=== PATIENT | male | born 2000 | race Hispanic/Latino ===

== ENCOUNTER 2018-04-09 22:39 | Emergency (ER) | payer OTHER ==
[2018-04-09] MEDS: PENICILLIN V POTASSIUM 500 MG TAB PO (23:13)
[2018-04-09] MEDS: IBUPROFEN 600 MG TAB PO (23:14)
== END 2018-04-09 23:29 | disposition home or self-care (01) ==
LOC: M ED 22:39
DX: J02.0 Streptococcal pharyngitis (principal)
CPT/HCPCS: 87880

== ENCOUNTER 2018-05-20 17:17 | Emergency (ER) | payer OTHER ==
[2018-05-20 17:46] LABS: KETONE, URINE AUTO RFX NEGATIVE (NEGATIVE); NITRITE, URINE AUTO RFX NEGATIVE (NEGATIVE); RBC, URINE AUTO RFX 4 /HPF (0-3); SQUAM EPITHELIAL CELL UR AURFX 0 /HPF (0-6)
[2018-05-20 18:12] LABS: LEUKOCYTE ESTERASE UR AUTO RFX TRACE (NEGATIVE); WBC, URINE AUTO RFX 12 /HPF (0-3)
[2018-05-20 19:38] LABS: CHLAMYDIA DNA AMPLIFICATION POSITIVE (NEGATIVE); GC DNA AMPLIFICATION NEGATIVE (NEGATIVE)
== END 2018-05-20 18:00 | disposition home or self-care (01) ==
LOC: M ED 17:17
DX: B35.9 Dermatophytosis, unspecified (principal); Z72.0 Tobacco use
CPT/HCPCS: 81001

== ENCOUNTER 2018-09-04 18:51 | Emergency (ER) | payer OTHER ==
[~2018-09-04] VITALS: Ht 180.3 cm; Wt 75.0 kg
[~2018-09-04 18:51] MED LIST: ANUS2.5C2 TOP; CLOT1CRE27 TOP; IBUP-1022 PO; PENI500T PO
[2018-09-04 19:50] LABS: BILIRUBIN, URINE MANUAL NEGATIVE (NEGATIVE); GLUCOSE, URINE (UA) MANUAL NEGATIVE (NEGATIVE); KETONE, URINE MANUAL NEGATIVE (NEGATIVE); UROBILINOGEN, URINE MANUAL NORMAL (NORMAL)
[2018-09-04] MEDS ORDERED: CLOT1CRE2 TOP (20:11)
[2018-09-04 20:19] VITALS: BP 131/71
[2018-09-04 21:19] LABS: CHLAMYDIA DNA AMPLIFICATION POSITIVE (NEGATIVE); GC DNA AMPLIFICATION NEGATIVE (NEGATIVE)
== END 2018-09-04 20:19 | disposition home or self-care (01) ==
LOC: M ED 18:51
DX: B35.9 Dermatophytosis, unspecified (principal); A74.9 Chlamydial infection, unspecified; Z86.19 Personal history of other infectious and parasitic diseases

== ENCOUNTER 2019-02-10 21:26 | Emergency (ER) | payer OTHER ==
[~2019-02-10] VITALS: Ht 180.3 cm; Wt 75.0 kg
[~2019-02-10 21:26] MED LIST changes: +CLOT1CRE2 TOP
[2019-02-10] MEDS ORDERED: CLOT1CRE2 TOP (22:47)
[2019-02-10 22:54] VITALS: BP 115/55
== END 2019-02-10 22:55 | disposition home or self-care (01) ==
LOC: M ED 21:26
DX: Z76.0 Encounter for issue of repeat prescription (principal); R23.8 Other skin changes

== ENCOUNTER 2019-04-08 11:33 | Emergency (ER) | payer OTHER ==
[~2019-04-08] VITALS: Ht 177.8 cm; Wt 75.2 kg
[2019-04-08 11:34] VITALS: BP 131/70
[2019-04-08 13:52] LABS: CHLAMYDIA DNA AMPLIFICATION NEGATIVE (NEGATIVE); GC DNA AMPLIFICATION NEGATIVE (NEGATIVE)
== END 2019-04-08 12:39 | disposition home or self-care (01) ==
LOC: M ED 11:33
DX: N48.1 Balanitis (principal); F17.210 Nicotine dependence, cigarettes, uncomplicated

== ENCOUNTER 2020-03-17 15:35 | Emergency (ER) | payer OTHER ==
[~2020-03-17] VITALS: Ht 177.8 cm; Wt 89.2 kg
[~2020-03-17 15:35] MED LIST changes: -CLOT1CRE2 TOP; +CLOT1CRE56 TOP
[2020-03-17 18:05] LABS: HEPATITIS B SURFACE ANTIBODY POSITIVE (POSITIVE); HEPATITIS B SURFACE ANTIGEN NEGATIVE (NEGATIVE); HEPATITIS C VIRUS ABY INDEX 0.1 INDEX (<0.8); HIV 1&2 SCREEN CENTAUR NEGATIVE (NEGATIVE)
--- NOTE | 2020-03-17 18:32 | REPVR ---
PROCEDURE INFORMATION: Exam: US Scrotum Exam date and time: 03/17/2020 6:04 PM Age: 19 years old Clinical indication: Scrotum pain and other: Penile pain; Additional info: Scrotal pain/ penile pain TECHNIQUE: Imaging protocol: Real-time ultrasound of the scrotum and contents with color Doppler and image documentation. COMPARISON: No relevant prior studies available. FINDINGS: Right testicle: The right testicle is normal in size and echogenicity, measuring 4.7 x 2.3 x 2.9 cm, with volume of 16.4 cc. No intratesticular mass. Color flow is observed to the right testicle. Left testicle: The left testicle is normal in size and echogenicity, measuring 4.7 x 2.3 x 2.8 cm, with volume of 15.8 cc. No intratesticular mass. Color flow is observed to the left testicle. Epididymides: There are 2 anechoic epididymal head cysts on the left each measuring 2 mm. The left epididymal head measures 13 mm. The right epididymal head is unremarkable, measuring 13 mm. Scrotum: Normal. IMPRESSION: 1. Two 2 mm left epididymal head cysts. 2. Normal testicles bilaterally. Electronically signed by: Zeina Gusman On 03/17/2020 18:31:47 PM
[2020-03-17] MEDS ORDERED: cefTRIAXone SOD 250MG VIAL (J0696 PER 250MG) IM ONE (19:00)
[2020-03-17] MEDS ORDERED: LIDOCAINE 1% SDV 5ML VIAL DILUENT ONE (19:00)
[2020-03-17] MEDS ORDERED: AZITHROMYCIN 250MG TABLET PO ONE (19:00)
[2020-03-17 19:27] VITALS: BP 132/71
[2020-03-17 20:03] LABS: CHLAMYDIA DNA AMPLIFICATION NEGATIVE (NEGATIVE); GC DNA AMPLIFICATION NEGATIVE (NEGATIVE)
== END 2020-03-17 19:28 | disposition home or self-care (01) ==
LOC: M ED 15:35
DX: N50.3 Cyst of epididymis (principal); R30.0 Dysuria; Z86.19 Personal history of other infectious and parasitic diseases
CPT/HCPCS: 36415; 76870; 81001; 86706; 86780; 86803; 87340; 87389; 87491; 87591; 87661; 93976; 96372; 99284; J0696